=== PATIENT | male | born 1995 | race Caucasian/White ===

== ENCOUNTER 2021-06-18 07:39 | Outpatient (CLI) | payer OTHER, SELFPAY ==
--- NOTE | ~2021-06-18 | US_ITS ---
US abdomen complete EXAMINATION: US Abdomen Complete INDICATION: Abdomen pain. Blood in stool. PROCEDURE: Realtime High Resolution abdomen ultrasound. COMPARISON: No prior studies for comparison FINDINGS: Gallbladder within normal limits. No gallstones, pericholecystic fluid, gallbladder wall t hickening or biliary dilatation. Common bile duct measures 3 mm. Liver echotexture within normal limits without focal mass. Pancreas within normal limits. Pancreati c tail is obscured by bowel gas. Spleen is unremarkeable. Renal echotexture is within normal limits bilaterally without hydronephrosis, contour deforming mass or renal stone. Right kidney measures 9.9 cm. Left kidney measures 10.4 cm. Visualized aspects of the aorta and IVC are within normal limits. Portal vein is patent. No sonograph ic Dove's sign indicated by the technologist. IMPRESSION: 1: Normal abdominal ultrasound. Reviewed, dictated and finalized at location A. [facility]
== END 2021-06-18 07:40 | disposition home or self-care (01) ==
LOC: ANHIMG 07:42
PROVIDERS: Visit Provider Emergency Medicine
DX: R10.9 Unspecified abdominal pain (principal)
CPT/HCPCS: 76700

== ENCOUNTER 2021-08-13 02:09 | Day surgery (SDC) | payer OTHER, SELFPAY ==
[2021-08-03 08:07] VITALS: BMI 25.9
[2021-08-13 10:10] VITALS: BP 106/67; PULSE 65; RESP 18; TEMP 36.6; O2SAT 98
[2021-08-13] MEDS: LACTATED RINGERS 1,000 ML 150 ML IV CONT (10:22)
--- NOTE | 2021-08-13 10:22 | WPDANESEPPF ---
Anes - Initial Pre Proc Eval Procedure: Operation Date: 08/13/21 11:30 Proposed Procedures p Esophagogastroduodenoscopy & Colonoscopy - Skyler Burroughs MD Date/Time: 08/13/21 10:22 Surgeon: Skyler Burroughs MD Pre Op Diagnosis: abdominal pain, weight loss,change in bowel habit Patient Data Age: 25 Gender: M Height: 1.78 m Weight: 78.1 kg Last Vital Signs Temp 36.6 C 08/13/21 10:10 Pulse 65 08/13/21 10:10 Resp 18 08/13/21 10:10 BP 106/67 08/13/21 10:10 Pulse Ox 98 08/13/21 10:10 Allergies Allergy/AdvReac Type Severity Reaction Status Date / Time No Known Allergies Allergy Unverified 08/13/21 10:09 Home Medications Medication Instructions Recorded Confirmed Type No Home Medications 07/16/21 08/13/21 History Patient hx anesthesia problems: none Family hx anesthesia problems: none Results Review: All pre-operative results and documents have been reviewed as part of the pre-operative evaluation. [facility] Surgical History Surgical History Extra digits bilateral hands, R foot History of meniscectomy of right knee Family History Family History Father Hypertension Diabetes mellitus Social History Social History Smoking status: Never smoker Second hand tobacco smoke exposure: No Alcohol intake: never Substance use: never Substance use type: does not use Living arrangements: with family Gender identity (if verbalized by the patient): Male Sexual Orientation (if Verbalized by the Patient): Straight or Heterosexual Spiritual care concerns: No Anes - Eval Final PreProcedure Day of Procedure 08/13/21 10:22 Patient weight: normal Heart: regular rate and rhythm Lungs: clear to auscultation Airway: Mallampati scale class 1 Neurological: alert and oriented Last oral intake: >/= 8 hours ASA classification: II Emergent: no Anesthetic plan: proceed Anesthesia type and monitoring: general GIVS and standard monitoring Results Review: All pre-operative results and documents have been reviewed as part of the pre-operative evaluation. Informed Consent: The patient's anesthetic plan and its attendant risks and benefits were discussed with the patient/family/POA. Questions were solicited and answers provided to the satisfaction of the patient/family/POA.
--- NOTE | 2021-08-13 10:24 | PM.HPGS ---
History of Present Illness History of Present Illness Consent: Risks, benefits, and alternatives have been discussed and questions answered. Patient agrees to proceed with procedure. Chief complaint: abdominal pain, weight loss,change in bowel habit Narrative: Arturo Koch is a 25 year old male with several months of intermittent blood in stool, also he was told that probably has IBS (he has alternating diarrhea and constipation) but never had scopes. Also noted some weight loss and abdominal discomfort. Review of Systems Constitutional: Constitutional: Denies headache(s) and Denies weakness Eyes: Eyes: Denies blurry vision ENT: Reports Normal hearing present, Denies headache(s) and Denies neck pain Cardiovascular: Cardiovascular: Denies chest pain and Denies dyspnea Respiratory: Respiratory: Denies dyspnea Gastrointestinal: Gastrointestinal: Reports no additional gastrointestinal complaints Genitourinary: Genitourinary: Denies dysuria Musculoskeletal: Musculoskeletal: Denies neck pain Integumentary/Breasts: Skin/Breast: Denies dry skin Neurologic: Reports Normal hearing present, Denies headache(s) and Denies weakness Psychiatric: Psychiatric: Denies anxiety Endocrine: Endocrine: Denies change in body appearance Hematologic/Lymphatic: Hematologic/Lymphatic: Denies easy bleeding Allergic/Immunologic: Allergic/Immunologic: Denies urticaria PMFSH Past Medical History Medical History (Updated 08/13/21 @ 10:25 by Skyler Burroughs MD) Abdominal pain Alternating constipation and diarrhea Blood in stool Surgical History Surgical History Extra digits bilateral hands, R foot History of meniscectomy of right knee Family History Family History Father Hypertension Diabetes mellitus Social History Social History Smoking status: Never smoker Second hand tobacco smoke exposure: No Alcohol intake: never Substance use: never Substance use type: does not use Living arrangements: with family Gender identity (if verbalized by the patient): Male Sexual Orientation (if Verbalized by the Patient): Straight or Heterosexual Spiritual care concerns: No Meds Home Medications and Allergies Home Medications Medication Instructions Recorded Confirmed Type No Home Medications 07/16/21 08/13/21 History Allergies Allergy/AdvReac Type Severity Reaction Status Date / Time No Known Allergies Allergy Unverified 08/13/21 10:09 Vital Signs Vital Signs - 24 hr 08/13/21 10:10 Temperature 97.8 F Pulse Rate 65 Respiratory Rate 18 Blood Pressure 106/67 Pulse Oximetry 98 Exam Const: General: comfortable and no acute distress HENMT: General nose exam: Normal nares present Eyes: General: appearance normal, both eyes and all related structures Neck: Neck: no JVD Resp: Auscultation: clear to auscultation bilaterally Cardio: Rate: regular rate Rhythm: regular rhythm GI: Inspection: non-distended GI Palp: Yes Soft to palpation Skin: General skin exam: normal color Neuro: General: gait normal Speech: normal speech Extrem: General: normal to inspection Psych: Mental Status: mental status grossly normal Assessment and Plan Assessment and plan (1) Blood in stool: Code(s): K92.1 - Melena Status: Acute Assessment and Plan: needs colonoscopy, could be perianal (2) Alternating constipation and diarrhea: Code(s): R19.8 - Other specified symptoms and signs involving the digestive system and abdomen Status: Acute Assessment and Plan: egd and colonoscopy with random bx (ddx microscopic colitis, celiac, ibs, etc) (3) Abdominal pain: Code(s): R10.9 - Unspecified abdominal pain Status: Acute
[2021-08-13] MEDS: BENZOCAINE (*SP) 60 ML SPRAY CAN (HURRICAINE) 1 SPRAY MUCOUS MEM (10:30)
--- NOTE | 2021-08-13 10:39 | SUR.OPER ---
EGD ended at 1035, Colonoscopy began at 1039.
[2021-08-13 10:51] VITALS: BP 89/47; PULSE 57; RESP 16; O2SAT 100
[2021-08-13 11:01] VITALS: BP 88/43; PULSE 57; RESP 15; O2SAT 100
[2021-08-13 11:11] VITALS: BP 109/60; PULSE 54; RESP 15; O2SAT 100
== END 2021-08-13 11:15 | disposition home or self-care (01) ==
PROVIDERS: PCP Family Medicine; Visit Provider Internal Medicine Gastroenterology
PROC: 0DJ08ZZ Inspection of Upper Intestinal Tract, Via Natural or Artificial Opening Endoscopic (ICD-10-PCS; CPT 43235; principal; 2021-08-13 11:30)
DX: K59.00 Constipation, unspecified (principal); K58.9 Irritable bowel syndrome, unspecified; K92.1 Melena; K62.1 Rectal polyp; K64.8 Other hemorrhoids; R10.30 Lower abdominal pain, unspecified; R63.4 Abnormal weight loss; R10.9 Unspecified abdominal pain; R19.8 Other specified symptoms and signs involving the digestive system and abdomen
CPT/HCPCS: 45385; 45380; 43239; 88305; J2001; J2704; J7120